=== PATIENT | female | born 1940 | race Caucasian/White ===

== ENCOUNTER 2020-07-21 12:50 | Day surgery (SDC) | payer MEDICARE ==
[~2020-07-21] VITALS: Ht 165.1 cm; Wt 68.4 kg
[~2020-07-21 12:50] MED LIST: ASCO100018 PO; BIFI4CAP PO; DOCU-131 PO; GABA300C10 PO; OXYC-302 PO; SPIR1TAB3 PO; echinacea PO; zinc PO
[2020-07-21 13:56] VITALS: BP 179/80
[2020-07-21] MEDS ORDERED: CHLORHEXIDINE 15 ML UDC MM ONE (14:00)
[2020-07-21] MEDS ORDERED: LACTATED RINGERS 1,000 ML IV SCH (14:00)
[2020-07-21 14:23] LABS: ALANINE AMINOTRANSFERASE 26 U/L (12-78); ALBUMIN 4.1 g/dL (3.4-5.0); ANION GAP 8 mmol/L (5-15); CHLORIDE 100 mmol/L (98-107); CREATININE 1.31 mg/dL (0.55-1.02)
[2020-07-21 14:26] LABS: ALKALINE PHOSPHATASE 69 U/L (45-117); BILIRUBIN,TOTAL 0.9 mg/dL (0.2-1.0); TOTAL PROTEIN 8.4 g/dL (6.4-8.2)
[2020-07-21] MEDS ORDERED: ISOSULFAN BLUE 10 MG/ML, 5ML IV ONE (15:14)
[2020-07-21] MEDS ORDERED: BUPIVACAINE/PF 0.5% ONE (15:14)
[2020-07-21] MEDS ORDERED: FENTANYL PF 100 MCG/2ML ONE ×3 (15:21→17:07)
[2020-07-21] MEDS ORDERED: EPINEPHRINE 1 MG/ML, 1ML INFIL ONE (15:56)
[2020-07-21] MEDS ORDERED: PROPOFOL 10 MG/ML, 20ML ONE (16:10)
[2020-07-21] MEDS ORDERED: ONDANSETRON 2MG/ML, 2ML ONE (16:10)
[2020-07-21] MEDS ORDERED: CEFAZOLIN 1,000 MG ONE (16:10)
[2020-07-21] MEDS ORDERED: hydrALAzine 20 MG/ML, 1ML ONE (16:10)
[2020-07-21] MEDS ORDERED: hydrALAzine 20 MG/ML, 1ML IV PRN (17:00)
[2020-07-21] MEDS ORDERED: ACETAMINOPHEN 325 MG TABLET PO PRN (17:00)
[2020-07-21] MEDS ORDERED: OXYcodone 5 MG/5 ML ORAL.SOL UDC PO PRN (17:00)
[2020-07-21] MEDS ORDERED: PROMETHAZINE 25 MG/ML, 1ML IVPush PRN (17:00)
[2020-07-21] MEDS ORDERED: PROMETHAZINE 25 MG SUPP PR PRN (17:00)
[2020-07-21] MEDS ORDERED: LABETALOL 5MG/ML, 20ML IV PRN (17:00)
[2020-07-21] MEDS ORDERED: METHOCARBAMOL 1,000 MG in DEXTROSE 5% 100 ML IV PRN (17:00)
[2020-07-21] MEDS ORDERED: HYDROmorphone 1 MG/ML, 1ML INJ IVPush PRN (17:00)
[2020-07-21] MEDS ORDERED: ONDANSETRON 2MG/ML, 2ML IVPush PRN (17:00)
[2020-07-21] MEDS ORDERED: FENTANYL PF 100 MCG/2ML IV PRN (17:00)
[2020-07-21] MEDS ORDERED: ACETAMINOPHEN 650 MG/20.3 ML UDC ONE (17:07)
[2020-07-21] MEDS ORDERED: OXYcodone 5 MG/5 ML ORAL.SOL UDC ONE (17:08)
== END 2020-07-21 19:30 | disposition home or self-care (01) ==
LOC: OUT 12:50 → EDSTATUS 15:30 → OUT 19:30
PROVIDERS: ATTEND Surgery
DX: C50.412 Malignant neoplasm of upper-outer quadrant of left female breast (principal); I10 Essential (primary) hypertension; Z17.0 Estrogen receptor positive status [ER+]; Z20.822 Contact with and (suspected) exposure to COVID-19; Z79.899 Other long term (current) drug therapy; Z88.8 Allergy status to other drugs, medicaments and biological substances; Z90.710 Acquired absence of both cervix and uterus; Z98.890 Other specified postprocedural states
CPT/HCPCS: 19301; 36415; 38525; 38792; 80053; 87635; 88305; 88307; 88329; 93005; A9541; C1729; J0171; J0360; J0690; J2405; J2704; J3010; J7120

== ENCOUNTER 2020-08-27 07:03 | Outpatient (CLI) | payer MEDICARE ==
[~2020-08-27 07:03] MED LIST changes: -OXYC-302 PO; +OXYC1TAB14 PO
== END 2020-08-27 23:59 | disposition home or self-care (01) ==
LOC: ROC 07:03
PROVIDERS: ATTEND Radiology Radiation Oncology
DX: C50.412 Malignant neoplasm of upper-outer quadrant of left female breast (principal)
CPT/HCPCS: G0463-95; G2251

== ENCOUNTER 2020-10-15 07:20 | Outpatient (CLI) | payer MEDICARE | END 2020-10-15 23:59 | disposition home or self-care (01) | LOC: ROC 07:20 | PROVIDERS: ATTEND Radiology Radiation Oncology | DX: Z08 Encounter for follow-up examination after completed treatment for malignant neoplasm (principal); Z85.3 Personal history of malignant neoplasm of breast | CPT/HCPCS: G2251 ==